=== PATIENT | male | born 1985 | race Two or more races ===

== ENCOUNTER 2024-04-07 12:45 | Inpatient (IN) | payer MEDICAID, OTHER ==
[~2024-04-07] VITALS: Ht 165.1 cm; Wt 77.9 kg
[2024-04-07 13:15] VITALS: PULSE 82; RESP 14; O2SAT 99
[2024-04-07] MEDS: fentaNYL CITRATE 100 MCG/2 ML VL IV ONE (13:46)
[2024-04-07 13:55] LABS: Urine Bacteria None Seen /hpf (None Seen)
[2024-04-07 14:13] LABS: Urine Blood Negative /uL (Negative); Urine Clarity Clear (Clear); Urine Color Light-Yellow (Yellow); Urine Protein, UAD Negative (Negative); Urine Specific Gravity 1.015 (1.001-1.035); Urine Urobilinogen Normal (Negative); Urine WBC <1 /hpf (0 - 3); Urine pH 6.5 (5.0-9.0)
[2024-04-07 14:23] LABS: Amphetamine Screen, Urine Neg (NEGATIVE); Benzodiazephine Screen, Urine Neg (NEGATIVE)
[2024-04-07 14:24] LABS: Barbiturate Scree,Urine Neg (NEGATIVE); Cannabinoid Screen, Urine Pos (NEGATIVE); Cocaine Screen, Urine Neg (NEGATIVE); Opiate Scree,Urine Neg (NEGATIVE); Phencyclidine Screen, Urine Neg (NEGATIVE)
[2024-04-07] MEDS: diazePAM 5 MG TAB PO ONE (14:30)
[2024-04-07] MEDS: KETOROLAC TROMETH 30 MG/ML 1ML VIAL IV ONE (14:30)
[2024-04-07 15:14] LABS: Alanine Aminotransferase 46 U/L (7-40); Albumin 4.7 g/dL (3.2-4.8); Alkaline Phosphatase 58 U/L (46-116); Anion Gap 8 (5-15); Aspartate Aminotransferase 26 U/L (13-40); BUN/Creatinine Ratio 13.1 (10.0-20.0); Basophils # (auto) 0 10 ^3/uL (0-0.2); Basophils % (auto) 0.3 % (0.0-2.0); Bilirubin, Total 1.2 mg/dL (0.2-1.0); Blood Urea Nitrogen 13 mg/dL (9-23); Calcium 9.7 mg/dL (8.5-10.1); Carbon Dioxide 24 mmol/L (20-30); Chloride 106 mmol/L (98-107); Eosinophils # (auto) 0 10 ^3/uL (0-0.8); Eosinophils % (auto) 0.2 % (0.0-7.0); Glucose 117 mg/dL (74-106); Hematocrit 46.8 % (41.0-53.0); Hemoglobin 15.8 g/dL (13.5-17.5); Lymphocytes # (auto) 1.9 10 ^3/uL (0.4-5.4); Lymphocytes % (auto) 16.9 % (10.0-50.0); Mean Corpuscular Hgb Conc. 33.7 g/dL (32.0-36.0); Mean Corpuscular Volume 83.1 fL (80.0-100.0); Monocytes # (auto) 0.5 10 ^3/uL (0-1.3); Monocytes % (auto) 4.4 % (0.0-12.0); Neutrophils % (auto) 78.2 % (37.0-80.0); Nucleated Red Blood Cells % 0.1 %; Potassium 3.8 mmol/L (3.5-5.1); Red Blood Cells 5.63 10^6/uL (4.5-5.90); Red Cell Distribution Width 13.4 % (11.8-14.3); Sodium 138 mmol/L (136-145); White Blood Cell 11.5 10^3/uL (4.4-10.8)
[2024-04-07 15:15] LABS: Total Protein 7.4 g/dL (5.7-8.2)
[2024-04-07] MEDS: DexAMETHasone SOD PHOS 10MG/1ML VIAL INJ IV ONE (16:15)
[2024-04-07] MEDS: CYCLOBENZAPRINE HCL 10 MG TAB PO ONE (16:15)
[2024-04-07 16:17] LABS: Erythrocyte Sedimentation Rate 2 mm/hr (0-20)
[2024-04-07] MEDS: SODIUM CHLORIDE 0.9% 500 ML IV ONE (16:32)
[2024-04-07] MEDS: SODIUM CHLORIDE 0.9% 1,000 ML IV SCH (18:45)
[2024-04-07] MEDS ORDERED: ACETAMINOPHEN 325 MG TAB PO PRN (18:45)
[2024-04-07 19:30] VITALS: PULSE 76; RESP 10; O2SAT 96
[2024-04-07] MEDS: KETOROLAC TROMETH 30 MG/ML 1ML VIAL IV PRN (20:13)
[2024-04-07] MEDS: CYCLOBENZAPRINE HCL 10 MG TAB PO PRN (20:13)
[2024-04-07] MEDS: IBUPROFEN 600 MG TAB PO SCH (22:54)
[2024-04-08 05:00] LABS: Basophils # (auto) 0 10 ^3/uL (0-0.2); Basophils % (auto) 0.3 % (0.0-2.0); Eosinophils # (auto) 0 10 ^3/uL (0-0.8); Hematocrit 46.9 % (41.0-53.0); Hemoglobin 15.4 g/dL (13.5-17.5); Lymphocytes # (auto) 1.2 10 ^3/uL (0.4-5.4); Lymphocytes % (auto) 9.7 % (10.0-50.0); Mean Corpuscular Hemoglobin 27.9 pg (28.0-32.0); Mean Corpuscular Hgb Conc. 32.9 g/dL (32.0-36.0); Monocytes # (auto) 0.4 10 ^3/uL (0-1.3); Monocytes % (auto) 2.9 % (0.0-12.0); Neutrophils # (auto) 10.7 10 ^3/uL (1.6-8.6); Neutrophils % (auto) 87.1 % (37.0-80.0); Nucleated Red Blood Cells % 0.1 %; Red Blood Cells 5.52 10^6/uL (4.5-5.90); Red Cell Distribution Width 13.5 % (11.8-14.3); White Blood Cell 12.3 10^3/uL (4.4-10.8)
[2024-04-08 05:45] LABS: Alanine Aminotransferase 33 U/L (7-40); Alkaline Phosphatase 52 U/L (46-116); Anion Gap 8 (5-15); BUN/Creatinine Ratio 13.3 (10.0-20.0); Blood Urea Nitrogen 15 mg/dL (9-23); Calcium 9.5 mg/dL (8.5-10.1); Carbon Dioxide 23 mmol/L (20-30); Chloride 109 mmol/L (98-107); Glucose 148 mg/dL (74-106); Potassium 4.5 mmol/L (3.5-5.1); Sodium 140 mmol/L (136-145)
[2024-04-08 05:46] LABS: Albumin 4.4 g/dL (3.2-4.8); Aspartate Aminotransferase 20 U/L (13-40); Total Protein 7.2 g/dL (5.7-8.2)
[2024-04-08] MEDS: HYDROcodone-ACET 5/325MG TAB PO PRN (06:12)
[2024-04-08 08:00] VITALS: PULSE 72; RESP 12; O2SAT 96
[2024-04-08] MEDS: ENOXAPARIN SOD 40 MG/0.4 ML SYRINGE SC SCH (11:06)
[2024-04-08 13:29] VITALS: BP 109/69; PULSE 66; RESP 16; TEMP 98.1; O2SAT 96
[2024-04-08 17:00] VITALS: BP 103/55; PULSE 70; RESP 18; TEMP 97.8; O2SAT 95
[2024-04-08 17:40] VITALS: BP 112/60; PULSE 71; RESP 18; TEMP 97.8; O2SAT 94
[2024-04-08 21:00] VITALS: BP 101/53; PULSE 62; RESP 18; TEMP 98.3; O2SAT 95
[2024-04-09 05:00] VITALS: BP 91/54; PULSE 60; RESP 18; TEMP 97.6; O2SAT 96
[2024-04-09 08:00] VITALS: BP 104/59; PULSE 58; PULSE 70; RESP 16; RESP 18; TEMP 98; O2SAT 93; O2SAT 96
[2024-04-09] MEDS: DexAMETHasone SOD PHOS 10MG/1ML VIAL INJ IV ONE (11:19)
[2024-04-09 12:00] VITALS: BP 102/56; PULSE 70; RESP 18; TEMP 97.8; O2SAT 96
[2024-04-09 16:00] VITALS: BP 108/71; PULSE 71; RESP 16; TEMP 97.9; O2SAT 94
[2024-04-09 22:00] VITALS: BP 105/63; PULSE 73; RESP 18; TEMP 98.7; O2SAT 94
[2024-04-10 01:00] VITALS: BP 105/54; PULSE 72; RESP 17; TEMP 98; O2SAT 96
[2024-04-10 05:00] VITALS: BP 108/56; PULSE 66; RESP 16; TEMP 97.7; O2SAT 94
[2024-04-10 08:00] VITALS: BP 124/60; PULSE 59; RESP 16; TEMP 98.1; O2SAT 97
[2024-04-10 12:00] VITALS: BP 118/79; PULSE 64; RESP 16; TEMP 98; O2SAT 96
[2024-04-10] MEDS: CYCLOBENZAPRINE HCL 10 MG TAB PO PRN (13:36)
[2024-04-10 16:00] VITALS: BP 116/69; PULSE 68; RESP 16; TEMP 97.6; O2SAT 95
[2024-04-10 22:00] VITALS: BP 101/65; PULSE 65; RESP 17; TEMP 97.9; O2SAT 94
[2024-04-11 00:57] VITALS: BP 111/72; PULSE 57; RESP 20; TEMP 98.1; O2SAT 95
[2024-04-11 05:00] VITALS: BP 96/60; PULSE 62; RESP 17; TEMP 97.8; O2SAT 96
[2024-04-11 09:00] VITALS: BP 110/70; PULSE 73; RESP 20; TEMP 98.7; O2SAT 97
[2024-04-11 13:00] VITALS: BP 125/78; PULSE 68; RESP 20; TEMP 98.4; O2SAT 98
[2024-04-11] MEDS ORDERED: HYDR-4902 PO (13:43)
[2024-04-11] MEDS ORDERED: CYCL-611 PO (13:43)
== END 2024-04-11 17:10 | disposition home or self-care (01) | DRG 347 ==
LOC: EDBD 12:45 → ER 12:45 → OVERFLOW 18:45 → EAST 04-08 13:37 → CENTRAL 04-08 17:46
PROVIDERS: ADMIT Internal Medicine Geriatric Medicine; ATTEND Internal Medicine
DX: M51.37 Other intervertebral disc degeneration, lumbosacral region (principal); M25.80 Other specified joint disorders, unspecified joint; M48.07 Spinal stenosis, lumbosacral region; M62.838 Other muscle spasm; Z79.899 Other long term (current) drug therapy
CPT/HCPCS: 36415; 72131; 72148; 80053; 80307; 81001; 83605; 85025; 85652; 86141; 97116; 97163; 97530; G0378; J1100; J1885